=== PATIENT | male | born 1995 | race Caucasian/White ===

== ENCOUNTER 2017-02-06 14:41 | Inpatient (IN) | payer OTHER ==
[2017-02-06] MEDS ORDERED: Sodium Chloride 0.9% 1,000 ML IV SCH (15:45)
[2017-02-06] MEDS ORDERED: CCU Electrolyte Replacement 1 EACH IVPB ONE (15:57)
[2017-02-06] MEDS ORDERED: hydrALAZINE 20 MG/ML VIAL SLOW IVP PRN ×2 (15:57→20:09)
[2017-02-06] MEDS ORDERED: Ondansetron HCl/PF 4 MG/2 ML Vial IVP PRN ×2 (15:57→22:45)
[2017-02-06] MEDS ORDERED: Bisacodyl 10 MG SUPP PR PRN (15:57)
[2017-02-06] MEDS ORDERED: Labetalol HCl 100 MG/20 ML VIAL SLOW IVP PRN ×2 (15:57→20:09)
[2017-02-06] MEDS ORDERED: Ondansetron HCl/PF 4 MG/2 ML Vial ONE (15:59)
[2017-02-06] MEDS ORDERED: Potassium Phosphate 9 MMOL in Sodium Chloride 0.9% 100 ML IVPB PRN (16:20)
[2017-02-06] MEDS ORDERED: Potassium Chloride 20 MEQ TAB PO PRN (16:20)
[2017-02-06] MEDS ORDERED: Magnesium 2 GM/NS 0.9% 100 ML 2 GM in Premix Bag 1 BAG IVPB PRN (16:20)
[2017-02-06] MEDS ORDERED: Potassium Phosphate 12 MMOL in Sodium Chloride 0.9% 250 ML 250 ML IV PRN (16:20)
[2017-02-06] MEDS ORDERED: CCU ELECTROLYTE REPLACEMENT PROTOCOL FS PRN (16:20)
[2017-02-06] MEDS ORDERED: Magnesium Oxide 400 MG TAB PO PRN ×2 (16:20)
[2017-02-06] MEDS ORDERED: Potassium Chloride 40 MEQ in Sodium Chloride 0.9% 250 ML 250 ML IVPB PRN (16:20)
[2017-02-06] MEDS ORDERED: Potassium Phosphate 15 MMOL in Sodium Chloride 0.9% 250 ML 250 ML IV PRN (16:20)
[2017-02-06] MEDS ORDERED: Potassium Chloride 40 MEQ in Premix Bag 1 BAG IVPB PRN (16:20)
[2017-02-06] MEDS ORDERED: ISOVUE-370 76%-LOCM 1 ML ONE (17:04)
[2017-02-06] MEDS ORDERED: Gadobenate Dimeglumine 529 MG/1 ML (20ML VIAL) ONE (17:06)
[2017-02-06 17:07] VITALS: BMI 23.1
--- NOTE | 2017-02-06 17:28 | CT ---
CTA HEAD WITHOUT CONTRAST CTA HEAD WITH IV CONTRAST AND 3D POST PROCESSING: FINDINGS: There is acute intraventricular hemorrhage, predominantly in the fourth ventricle and maybe a small a mount in the third ventricle. No infarct or midline shift is seen. No hydrocephalus is identified. The bony calvarium is intact. There is mucosal disease in the paranasal sinuses. The CTA demonstrates no evidence of major vessel occlusion, high-grade stenosis, or aneurysm formatio n. There are multiple prominent vessels posterior to the intraventricular bleed in the fourth ventri aga, predominantly on the right, suspicious for an AVM. 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 Discussed over the telephone with Dr. Warren Cardoso at 4 p.m. CODE CR POS: ANGELINE
[2017-02-06 17:51] LABS: #Monocytes 0.4 thou/uL (0.11-0.59); #Neutrophils 16.1 thou/uL (1.40-6.50); %Eosinophils 0.1 % (0.0-10.0); %Lymphocytes 5.5 % (21.0-51.0); %Monocytes 2.4 % (0.0-10.0); %Neutrophils 91.9 % (42.0-75.0); Hemoglobin 17.2 g/dL (14.0-18.0); Mean Corpuscular HGB CONC 33.5 g/dL (32.0-36.0); Mean Corpuscular Hemoglobin 30.3 pg (27.0-31.0); Mean Corpuscular Volume 90.5 fl (80.0-94.0); Mean Platelet Volume 6.9 fL (7.4-10.4); Platelet Count 275 thou/uL (130-400); RBC Distribution Width 11.3 % (11.5-14.5); Red Blood Cell (RBC) Count 5.67 mill/uL (4.70-6.10); White Blood Cell (WBC) Count 17.5 thou/uL (4.8-10.8)
[2017-02-06] MEDS ORDERED: Dextrose 50% Abboject 50 ML SYRINGE SLOW IVP PRN (17:53)
[2017-02-06] MEDS ORDERED: HumaLOG 300 UNITS/3 ML VIAL SC PRN (17:53)
[2017-02-06] MEDS ORDERED: Dextrose 5% in Water 1,000 ML IV PRN (17:53)
--- NOTE | 2017-02-06 17:56 | PDOC.PN ---
- Subjective Encounter Start Date: 02/06/17 Encounter Start Time: 17:55 Pt seen for management of medical comorbidities, including diabetes mellitus. Pt denies chest pain, shortness of breath. Headache is better now, 02/16. - Objective MAR Reviewed: Yes Vital Signs & Weight: Vital Signs (12 hours) Temp Pulse Resp Pulse Ox 02/06/17 17:37 98.7 F 98 17 99 Result Diagrams: 02/06/17 17:46 EKG Reviewed by me: Yes (Tele: NSR) Phys Exam - Physical Examination Constitutional: NAD HEENT: moist MMs Neck: supple Respiratory: clear to auscultation bilateral Cardiovascular: RRR Gastrointestinal: soft Neurological: non-focal, moves all 4 limbs Psychiatric: normal affect Skin: no rash Dx/Plan (1) Diabetes mellitus type 1 Status: Chronic - Plan * . Pt admitted for intracranial bleed. needs to go for MRI and is NPO for possible surgical procedures as well. Start accuchecks, insulin sliding scale for now. Stop insuilin pump. Review of Systems - Review of Systems Cardiovascular: negative: chest pain, palpitations, orthopnea, paroxysmal nocturnal dyspnea, edema, light headedness Neurological: Other (Headache) - Medications/Allergies Allergies/Adverse Reactions: Allergies Allergy/AdvReac Type Severity Reaction Status Date / Time No Known Allergies Allergy Unverified 02/06/17 15:35 Medications: Current Medications Bisacodyl (Dulcolax) 10 mg AK DAILYPRN PRN PRN Reason: Constipation Dextrose/Water (Dextrose 50%) 25 gm SLOW IVP PRN PRN PRN Reason: Hypoglycemia Glucagon (Glucagon) 1 mg IM PRN PRN PRN Reason: Hypoglycemia Hydralazine HCl (Apresoline) 5 mg SLOW IVP Q15MIN PRN PRN Reason: SBP > 160, HR < 70 Acetaminophen 1,000 mg/ Device 100 mls @ 400 mls/hr IVPB Q6H PRN PRN Reason: Fever/Mild Pain/Headache Stop: 02/07/17 15:58 Sodium Chloride (Normal Saline 0.9%) 1,000 mls @ 80 mls/hr IV .[id number] ADRIEN Potassium Chloride 40 meq/ (Sodium Chloride) 270 mls @ 135 mls/hr IVPB ASDIR PRN PRN Reason: FOR SERUM K+ 2.5 - 3.5 Potassium Chloride 40 meq/ (Device) 100 mls @ 50 mls/hr IVPB ASDIR PRN PRN Reason: FOR SERUM K+ 2.5 - 3.5 Magnesium Sulfate 1 gm/ Sodium (Chloride) 102 mls @ 102 mls/hr IV PRN PRN PRN Reason: MAG LEVEL 1.4 - 2.0 Magnesium Sulfate 2 gm/ Device 100 mls @ 100 mls/hr IVPB ASDIR PRN PRN Reason: MAGNESIUM < 1.4 Potassium Phosphate 9 mmol/ (Sodium Chloride) 103 mls @ 25.75 mls/hr IVPB ASDIR PRN PRN Reason: Phosphate 1.0-1.8 Potassium Phosphate 12 mmol/ (Sodium Chloride) 254 mls @ 63.5 mls/hr IV ASDIR PRN PRN Reason: Serum phosphate 0.5-0.9 Potassium Phosphate 15 mmol/ (Sodium Chloride) 255 mls @ 63.75 mls/hr IV ASDIR PRN PRN Reason: Serum Phos < 0.5 Dextrose/Water (D5w) 1,000 mls @ 0 mls/hr IV .Q0M PRN; As Directed PRN Reason: Hypoglycemia Insulin Human Lispro (Humalog) 0 units SC .MILD SLIDING SCALE PRN PRN Reason: Mild Correctional Scale Labetalol HCl (Normodyne) 10 mg SLOW IVP Q2H PRN PRN Reason: SBP GREATER THAN 160 Magnesium Oxide (Magnesium Oxide) 400 mg PO BIDPRN PRN PRN Reason: FOR SERUM MAG 1.4 - 2.0 Magnesium Oxide (Magnesium Oxide) 800 mg PO PRN PRN PRN Reason: FOR SERUM MAG < 1.4 Miscellaneous Medication (Phos-Nak) 1 pkt PO TIDPRN PRN PRN Reason: FOR PHOS LEVEL 1.0 - 1.8 Miscellaneous Medication (Phos-Nak) 2 pkt PO TIDPRN PRN PRN Reason: FOR PHOS LEVEL 0.5 - 1.0 Morphine Sulfate (Morphine) 2 mg SLOW IVP Q2HR PRN PRN Reason: Breakthrough Pain [facility] Electrolyte (Replacement Protocol) 0 each FS PRN PRN PRN Reason: FOR ELECTROLYTE REPLACEMENT Ondansetron HCl (Zofran) 4 mg IVP BIDPRN PRN PRN Reason: Nausea/Vomiting Potassium Chloride (K-Dur) 40 meq PO ASDIR PRN PRN Reason: FOR SERUM K+ 2.5 - 3.5 Potassium Chloride (Klor-Con) 40 meq PER TUBE ASDIR PRN PRN Reason: FOR SERUM K+ 2.5-3.5 Sodium Chloride (Flush - Normal Saline) 10 ml IVF PRN PRN PRN Reason: Saline Flush
[2017-02-06 18:13] LABS: Anion Gap 19 mmol/L (10-20); BUN (Urea Nitrogen) 14 mg/dL (8.9-20.6); Calc. Creatinine Clearance 154 mL/min (70-130); Calcium 9.7 mg/dL (7.8-10.44); Carbon Dioxide 19 mmol/L (22-29); Chloride 105 mmol/L (98-107); Estimated GFR-MDRD Greater than 90; Glucose 243 mg/dL (70-105); Potassium 3.9 mmol/L (3.5-5.1); Sodium 139 mmol/L (136-145)
--- NOTE | 2017-02-06 18:40 | HP ---
HISTORY OF PRESENT ILLNESS: Mr. Zafar is a 21-year-old man who was brought to [facility] by EMS transfer from [facility] in [place] after he reported there complaining of severe worst headache of his life since 1100 hours this morning. He has a history of migraines and stated that it started out feel like one of those. Then, from there, started to progr ess in severity. He then began to vomit uncontrollably and at that point called EMS, which took him to the [facility]. A CT scan was performed at that emergency department revealed intraventricular hemor rhage that encompasses the entire fourth ventricle with extension into the surrounding cisterns. The re also looks to be some cerebellar hemorrhage, particularly bilateral cerebellar subarachnoid hemorr aaron. He does not have any meningismus or sensitivity to light. He states that immediately upon ons et of his headache symptoms, he did have some left-sided hand and foot numbness as well as loss of th e majority of his hearing function in the left ear. The numbness has since resolved. The hearing he reports to me is still a persistent problem. His systolic pressures at the highest were in the 150s and at present are harboring in the 130s and low 140s, which I think is reasonable. His vomiting is much better controlled. He was given a large dose of Dilaudid. He immediately preceding transfer t o [facility] since so he is a little bit sleepy during our discussion, but he does arouse completely to full alertness when spoken to. On examination, he is again drowsy, but oriented x4. He understands the date, year, current situatio n, his name, his date of and can describe to me the entire events that preceded our discussion here today. His motor exam, he has full motor function, 5/5 strength in all muscle movements of the upper and lower extremities. He has no sensory disturbance to any trunk, chest, face or extremity lo cation that I can discern on examination. Cerebellar function is maintained and assessed with finger -nose-finger in bilateral upper extremities and in the heel-abreu slides bilaterally as well. His pup ils are equally round and reactive to light. Extraocular movements are intact. He does have diminis hed hearing which is notable with finger rub test to bilateral ears. He has intact hearing grossly o n the right and he states either extraordinarily diminished or fully absent in the left ear. PAST MEDICAL HISTORY: Only significant for type 1 diabetes. CURRENT MEDICATIONS: Humalog. ALLERGIES: No known drug allergies. ASSESSMENT: Acute intracerebral hemorrhage. PLAN: We have received now a CTA at this time in the emergency department. It does not show any obv ious aneurysm of AVM that I can note on the scan. This was discussed with Dr. Cardoso who agrees and t he radiologist's also agrees. Again ventricles are also normal in size with only mild enlargement of the occipital horns bilaterally. What we will obtain is an MRI as well with and without contrast of the brain to further assess any abnormal vasculature or tissue that may be responsible for this hemo rrhage. At some point, he will need a conventional angiogram performed as well to rule this out. Fo r now, we will admit him to the ICU with q.1 hour neuro checks. We will start normal saline to b.i.d . and make him n.p.o. for the time being. I discussed with the patient and family that the first 24- 48 hours will be the most critical, has our biggest fear would be obstructive hydrocephalus at which point I discussed the possibility of needing an external ventricular drain placed. The family and zehra jung understand of this and are accepting of that going forward. If that presents, I will discuss t his with the ICU nurse and have a ventriculostomy kit and tools in the room, but not open, so that if this does come to past, we can do it emergently. Hopefully, this does not occur. I will order a co nsultation to the Hospitalist for the purpose of medical management given that he is a type 1 diabeti c. Head of bed will be elevated 30 degrees. We will plan a repeat CT scan from late this evening ar ound midnight to reassess the hemorrhage size in ventricular size. Otherwise, we will continue q.1 h our neuro checks at least another 24-48 hours. Pieter Joseph PA-C dictating for Dr. Cardoso.
--- NOTE | 2017-02-06 18:53 | MRI ---
MRI BRAIN WITH AND WITHOUT CONTRAST: INDICATIONS: History of intracranial hematoma with sudden onset of headache, nausea, vomiting, and unsteady gait. FINDINGS: 16 mL of Multihance utilized for this exam. There is a tangle of vessels seen adjacent to the right posterolateral aspect of the mid brain. Ther e is a prominent collection of hemorrhage seen within the posterior central and right posterolateral aspect of the mid brain, measuring 1.5 cm. There is hemorrhage in the fourth ventricle and third rogerio tricle, as well as within the left foramen of Monro of the left lateral ventricle. Appropriate flow voids are seen within the major intracranial vessels. There is no restricted diffusion to suggest an acute infarction. The septum pellucidum and third ventricle are midline. No definite acute area of abnormal enhancement is seen, other than involving the adjacent tangle of vessels near the posterior aspect of the mid brain. There is mucus retention cyst within the right maxillary sinus. There is scattered mucosal thickening within the ethmoid air cells. There is an air-fluid level within the le ft maxillary sinus. IMPRESSION: 1. Tangle of vessels seen adjacent to the posterior aspect of the mid brain is suspicious for an art eriovenous malformation that bled. There is some intraparenchymal hematoma within the posterior aspe ct of the mid brain, as well as some intraventricular hemorrhage within the fourth ventricle, the thi rd ventricle, and the foramen of Monro of the left lateral ventricle. Follow-up examination may be p erformed with a conventional angiogram for a more definitive diagnosis, as hemorrhage does obscure de tail. A follow-up MR examination in four to six weeks may also be helpful. 2. Air-fluid level within the left maxillary sinus. Recommend correlation with frontal sinusitis. 3. Partial mastoid effusion on the right. POS: [facility]
[2017-02-06] MEDS: Sodium Chloride 0.9% 1,000 ML IV SCH (19:58)
[2017-02-06] MEDS ORDERED: Promethazine HCl 25 MG/ML VIAL SLOW IVP PRN ×2 (22:33→22:35)
[2017-02-06] MEDS: Acetaminophen 1,000 MG in Premix Bag 1 BAG IVPB PRN (22:54)
[2017-02-06] MEDS: HumaLOG 300 UNITS/3 ML VIAL SC PRN (23:48)
--- NOTE | 2017-02-07 02:39 | PRG ---
DATE OF SERVICE: 02/06/2017 Mr. Zafar is a 21-year-old male who presented today with severe headache as well as nausea and ana maría e emesis. He had a CT scan performed at an outside ER, which revealed the presence of hemorrhage wit hin the fourth ventricle. He was subsequently transferred to [facility] where he underwent a CT angiography, which did not reveal a source for aneurysm. He was admitted to the ICU where he garibay s been neurologically and hemodynamically stable. He has had an MRI scan performed on the brain, whi ch does not reveal an obvious source of underlying lesion, although the hemorrhage is such that it co uld very well obscure an underlying lesion. There is some suggestion of possible vascular tortuosity , which may represent AVM. It is also conceivable that this represents a cavernoma. The plan from a neurosurgical perspective will be ongoing ICU management with observation. I have be en discussed in detail the findings, diagnosis, and plan with his family. I discussed the need withi n the near future for angiography as well. I also alerted them to the potential for development of s ymptomatic hydrocephalus. Currently, Mr. Zafar is resting comfortably in bed. He is oriented x3, and follows commands well. He does report some nausea and has been struggling with emesis. We will continue to treat that med cooper.
[2017-02-07] MEDS: Morphine 4 MG/ML VIAL SLOW IVP PRN (03:04)
[2017-02-07] MEDS: Sodium Chloride 0.9% 1,000 ML IV SCH ×2 (04:20→17:59)
[2017-02-07 04:30] LABS: #Lymphocytes 1.1 thou/uL (1.20-3.40); #Monocytes 0.7 thou/uL (0.11-0.59); #Neutrophils 10.3 thou/uL (1.40-6.50); %Eosinophils 0.2 % (0.0-10.0); %Lymphocytes 9.2 % (21.0-51.0); %Monocytes 5.6 % (0.0-10.0); Hemoglobin 14.7 g/dL (14.0-18.0); Mean Corpuscular HGB CONC 33.1 g/dL (32.0-36.0); Mean Corpuscular Hemoglobin 30.2 pg (27.0-31.0); Mean Corpuscular Volume 91.3 fl (80.0-94.0); Platelet Count 331 thou/uL (130-400); RBC Distribution Width 11.5 % (11.5-14.5); Red Blood Cell (RBC) Count 4.88 mill/uL (4.70-6.10); White Blood Cell (WBC) Count 12.1 thou/uL (4.8-10.8)
[2017-02-07 04:42] LABS: Anion Gap 19 mmol/L (10-20); BUN (Urea Nitrogen) 19 mg/dL (8.9-20.6); Calc. Creatinine Clearance 131 mL/min (70-130); Calcium 9.2 mg/dL (7.8-10.44); Carbon Dioxide 19 mmol/L (22-29); Chloride 106 mmol/L (98-107); Estimated GFR-MDRD Greater than 90; Glucose 320 mg/dL (70-105); Sodium 140 mmol/L (136-145)
[2017-02-07] MEDS: HumaLOG 300 UNITS/3 ML VIAL SC PRN (06:21)
--- NOTE | 2017-02-07 08:08 | HP ---
DATE OF SERVICE: 02/07/2017 Mr. Zafar this morning he is stable from yesterday's exam. He is sleepy, but awakens rather quick ly and overall looks to be doing pretty well. His CT scan performed at 0500 this morning looks stabl e to yesterday's exam. Ventricles remain the same size. There is no obvious sign of increased ventr icular volume so at least for the time being we can hold off on the EVD placement. Again, he is orie nted to time, place, person and situation. He has no motor deficits, no sensory deficits. He does c ontinue to have persistent left ear reduced hearing. Of note, his blood sugars have continued to ris e steadily, now up in the low 300s. He does have sliding scale insulin ordered by [facility]; however, he may need more of treatment given his use of an insulin pump for type 1 diabetes. Critical Care to s ee the patient today and will likely adjust his insulin going forward. He also has heart rate that i s persistently in the 110s to 125 range, which is not normal for him. I am not sure if this is pain related or some secondary cardiac episode. We will continue to monitor this as well, but again overa ll given the location and size of his hemorrhage, he is doing very well. He is still in the window, though that he get up rapidly degrade neurologically at which point, again I discussed with him and h is father he may need an EVD placement. They are understanding of this and receptive to the idea, bu t hopefully we did not have to cross that bridge.
--- NOTE | 2017-02-07 08:52 | CT ---
PRELIMINARY REPORT/[facility]/EMERGENCY AFTER HOURS PROCEDURE: EXAM: CT Head Without Intravenous Contrast EXAM DATE/TIME: Exam ordered 02/07/2017 3:29 AM CLINICAL HISTORY: 21 years old, male; Condition or disease; Other: Intracerebral hemorrhagic stroke; Patient HX: F/u in tracerebral hemorrhagic stroke TECHNIQUE: Axial computed tomography images of the head/brain without intravenous contrast. COMPARISON: CTA Angio Head W LORENZA Con 2017-02-06 15:38 FINDINGS: Brain: Redemonstrated is a RIGHT mid brain hemorrhage/vascular malformation measuring approximately 1 5 mm which is unchanged from prior CT. Intraventricular hemorrhage is again noted within the fourth v entricle. No significant white matter disease. Ventricles: Mild ventricular prominence of the bilateral temporal horns is stable from prior. Bones/joints: Normal. No acute fracture. Soft tissues: Normal. Sinuses: Unremarkable as visualized. No acute sinusitis. Mastoid air cells: Unremarkable as visualized. No mastoid effusion. IMPRESSION: 1. Redemonstrated is a RIGHT mid brain hemorrhage/vascular malformation measuring approximately 15 mm which is unchanged from prior CT. Intraventricular hemorrhage is again noted within the adjacent fou rth ventricle. 2. Mild ventricular prominence of the bilateral temporal horns is stable from prior. Thank you for allowing us to participate in the care of your patient. Dictated and Authenticated by: Brock Ojeda MD 02/07/2017 3:51 AM Central Time ([place] & [place]) FINAL REPORT EMERGENT AFTER HOURS STUDY CT BRAIN NONCONTRAST: DATE: 02/07/17. TIME: 3:30 a.m. HISTORY: A 21-year-old male followup spontaneous, nontraumatic intracranial hemorrhage. COMPARISON: CT angiogram of the head of 02/06/17 at 3:42 p.m. FINDINGS: There is an approximately 1 x 1.5 cm acute intraaxial hematoma at the right posterior aspect of the m id brain. The hemorrhage has spilled into the adjacent fourth ventricle, which is mildly expanded, a nd into the bilateral foramina of Luschka and the foramen of Magendie. There is a tiny hematoma in t he third ventricle. The temporal horns of the lateral ventricles are mildly dilated. No mass effect or midline shift. No new hemorrhage. No interval change overall. No subdural or epidural hematoma . This report agrees with preliminary report by [facility]. IMPRESSION: 1. Intraaxial acute hemorrhage at the right posterior aspect of the midbrain, suspicious for a vascu lar malformation such as cavernous malformation. 2. That blood has spilled into intraventricular hematomas, mostly in the fourth ventricle, causing v vincent mild obstructive hydrocephalus. 3. No interval change overall since 02/06/17 at 3:42 p.m. BATSHEVA Tinajero POS: AN[facility]
[2017-02-07] MEDS ORDERED: Insulin Regular 300 UNITS/3 ML VIAL SC PRN (09:49)
[2017-02-07] MEDS ORDERED: Dextrose 50% Abboject 50 ML SYRINGE IVP PRN (09:49)
[2017-02-07] MEDS ORDERED: Dextrose 5% in Water 1,000 ML IV PRN ×2 (09:49→12:54)
[2017-02-07] MEDS ORDERED: HumaLOG 300 UNITS/3 ML VIAL SC PRN (12:54)
[2017-02-07] MEDS ORDERED: HumaLOG 300 UNITS/3 ML VIAL SC SCH (13:00)
--- NOTE | 2017-02-07 13:03 | CON ---
DATE OF CONSULTATION: 02/07/2017 SERVICE: Pulmonary Medicine. REASON FOR CONSULTATION: ICU patient. HISTORY OF PRESENT ILLNESS: The patient is a 21-year-old white male with past medical history significant for type 2 diabetes mellitus. He was in his usual state of health when he had a sudden onset of headache and altered mentation. He was brought to the emergency department. He was discovered to have intracranial hemorrhage. AV malformation is suggested based on imaging studies. As such, he is going down for an angiogram with possible procedure at some point in the very near future. He currently has headache, but this is improved. His mentation has improved dramatically since he has been in the ICU. He currently denies any fevers, chills, nausea, vomiting, or chest discomfort. He has an excellent appetite and is requesting food at this time. There have been no significant changes to his bowel habits. He is on an insulin pump at home and he manages his insulin based on some carb ratios. He has very good control with this modality at home and is requesting to restart this. I suggested that it is reasonable for us to restart his basal rate of insulin, but I would not like for him to bolus his premeal insulin and will take care of that at this point. This is the solution that we arrived primarily because the patient's mom is very concerned about transition off of the insulin pump and then back on. PAST MEDICAL HISTORY: Type 1 diabetes mellitus. PAST SURGICAL HISTORY: None. SOCIAL HISTORY: Negative for tobacco. He drinks alcohol occasionally. He notes using marijuana, but outside of that, he has no other illicit drug use. He has no exposure to chemicals, dust, asbestos or tuberculosis. FAMILY HISTORY: Noncontributory. ALLERGIES: No known drug allergies. MEDICATIONS: List of his inpatient medications was reviewed. A couple of small updates were made. REVIEW OF SYSTEMS: General, head, ears, eyes, nose, throat, cardiovascular, respiratory, GI, , musculoskeletal, neurologic and skin is negative except as mentioned in the HPI. PHYSICAL EXAMINATION: VITAL SIGNS: Currently afebrile with T-max of 99.3. Pulse 114, blood pressure 108/61, respirations 17, and saturation 97% on room air. GENERAL: Patient is awake, alert, in no apparent distress. LUNGS: Decent air entry. There is no prolonged expiratory phase, wheezing, rhonchi or crackles. HEART: Heart is tachycardic. Regular. ABDOMEN: Soft, nontender, nondistended, bowel sounds positive. MUSCULOSKELETAL: No cyanosis or clubbing. No pitting in the bilateral lower extremities. NEUROLOGIC: Grossly nonfocal. He is a little somnolent, but outside of that, he converses comfortably, and moves all four extremities. He demonstrates excellent strength and good sensation throughout. LABORATORY DATA: WBC 12.1 and improving, hemoglobin 14.7, platelets 331,000. Neutrophil count 85%. This is down trending. Basic metabolic profile is unremarkable. Blood sugars ranged from 235-373. IMAGING: CT of the brain demonstrates right midbrain hemorrhage and vascular malformation measuring 15 mm. This is unchanged. Hemorrhage is adjacent to the fourth ventricle. No evidence of hydrocephalus is evolving. Mild ventricular prominence of the bilateral temporal horns is noted. ASSESSMENT: 1. Intraparenchymal hemorrhage. 2. 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 3. Type 1 diabetes mellitus. PLAN: The patient is going to be going down for an interventional evaluation and possible procedure. He will remain in the ICU we have further understanding of what needs to be done here. If this is going to be delayed by 1-2 days, I think it would be reasonable to feed the patient. As previously noted, we are going to allow for him to continue using his basal rate off of his insulin pump. In addition to that, we will provide him with sliding scale insulin as well as premeal boluses once he is allowed to eat. Pulmonary or Critical Care will continue to follow while the patient remains in this location. 70 minutes have been devoted to this patient in various activities. For at least half of this time, I was at the bedside in direct patient interaction or coordinating care with the care team. For the remainder of the time I was immediately available to the patient in the hospital unit. REID
[2017-02-07] MEDS: Acetaminophen 1,000 MG in Premix Bag 1 BAG IVPB PRN (13:49)
[2017-02-07] MEDS ORDERED: INSULIN PUMP FS SCH (14:15)
--- NOTE | 2017-02-07 15:28 | PDOC.PN ---
- Subjective Encounter Start Date: 02/07/17 Encounter Start Time: 10:20 Pt seen for followup re; diabetes mellitus. Sleepy but arousable. - Objective Vital Signs & Weight: Vital Signs (12 hours) Temp Pulse Resp Pulse Ox 02/07/17 11:00 99 F 02/07/17 08:00 99.3 F 121 H 16 100 02/07/17 07:00 99.3 F Weight Weight 177 lb 4.026 oz Most Recent Monitor Data Heart Rate from ECG 99 NIBP 110/62 NIBP BP-Mean 77 Respiration from ECG 15 SpO2 100 I&O: 02/06/17 02/07/17 02/08/17 06:59 06:59 06:59 Intake Total 1095 500 Output Total 2050 1200 Balance -955 -700 Result Diagrams: 02/07/17 03:53 02/07/17 03:53 Additional Labs: Accuchecks 02/07/17 02/07/17 02/07/17 13:53 11:12 06:21 POC Glucose 237 H 235 H 373 H 02/06/17 02/06/17 23:18 20:40 POC Glucose 275 H 314 H Phys Exam - Physical Examination Constitutional: NAD HEENT: moist MMs Neck: supple Respiratory: clear to auscultation bilateral Cardiovascular: RRR Gastrointestinal: soft Neurological: moves all 4 limbs Skin: no rash Dx/Plan (1) Diabetes mellitus type 1 Status: Chronic - Plan * . Pt still NPO. Blood sugars elevated, switch to insulin aggressive sliding scale. Review of Systems - Review of Systems Constitutional: negative: fever, chills, sweats, weakness, malaise Cardiovascular: negative: chest pain, palpitations, orthopnea, paroxysmal nocturnal dyspnea, edema, light headedness - Medications/Allergies Allergies/Adverse Reactions: Allergies Allergy/AdvReac Type Severity Reaction Status Date / Time No Known Allergies Allergy Unverified 02/06/17 15:35 Medications: Current Medications Amoxicillin/Clavulanate Potassium (Augmentin) 500 mg PO Q12HR ADRIEN Stop: 02/17/17 21:01 Bisacodyl (Dulcolax) 10 mg NC DAILYPRN PRN PRN Reason: Constipation Dextrose/Water (Dextrose 50%) 25 gm IVP PRN PRN PRN Reason: HYPOGLYCEMIA PROTOCOL Glucagon (Glucagon) 1 mg IM PRN PRN PRN Reason: HYPOGLYCEMIA PROTOCOL Hydralazine HCl (Apresoline) 5 mg SLOW IVP Q15MIN PRN PRN Reason: SBP > 140, HR < 70 Last Admin: 02/06/17 20:41 Dose: 5 mg Acetaminophen 1,000 mg/ Device 100 mls @ 400 mls/hr IVPB Q6H PRN PRN Reason: Fever/Mild Pain/Headache Stop: 02/07/17 15:58 Last Admin: 02/07/17 13:49 Dose: 100 mls Sodium Chloride (Normal Saline 0.9%) 1,000 mls @ 80 mls/hr IV .[id number] ADRIEN Last Admin: 02/07/17 04:20 Dose: 1,000 mls Potassium Chloride 40 meq/ (Sodium Chloride) 270 mls @ 135 mls/hr IVPB ASDIR PRN PRN Reason: FOR SERUM K+ 2.5 - 3.5 Potassium Chloride 40 meq/ (Device) 100 mls @ 50 mls/hr IVPB ASDIR PRN PRN Reason: FOR SERUM K+ 2.5 - 3.5 Magnesium Sulfate 1 gm/ Sodium (Chloride) 102 mls @ 102 mls/hr IV PRN PRN PRN Reason: MAG LEVEL 1.4 - 2.0 Magnesium Sulfate 2 gm/ Device 100 mls @ 100 mls/hr IVPB ASDIR PRN PRN Reason: MAGNESIUM < 1.4 Potassium Phosphate 9 mmol/ (Sodium Chloride) 103 mls @ 25.75 mls/hr IVPB ASDIR PRN PRN Reason: Phosphate 1.0-1.8 Potassium Phosphate 12 mmol/ (Sodium Chloride) 254 mls @ 63.5 mls/hr IV ASDIR PRN PRN Reason: Serum phosphate 0.5-0.9 Potassium Phosphate 15 mmol/ (Sodium Chloride) 255 mls @ 63.75 mls/hr IV ASDIR PRN PRN Reason: Serum Phos < 0.5 Dextrose/Water (D5w) 1,000 mls @ 0 mls/hr IV .Q0M PRN; As Directed PRN Reason: Hypoglycemia Insulin Human Lispro (Humalog) 3 units SC AC ADRIEN Insulin Human Lispro (Humalog) 0 units SC ACHS PRN PRN Reason: Correctional Scale Labetalol HCl (Normodyne) 10 mg SLOW IVP Q2H PRN PRN Reason: Sbp Greater Than 140 Last Admin: 02/06/17 22:19 Dose: 2 ml Magnesium Oxide (Magnesium Oxide) 400 mg PO BIDPRN PRN PRN Reason: FOR SERUM MAG 1.4 - 2.0 Magnesium Oxide (Magnesium Oxide) 800 mg PO PRN PRN PRN Reason: FOR SERUM MAG < 1.4 Miscellaneous Medication (Phos-Nak) 1 pkt PO TIDPRN PRN PRN Reason: FOR PHOS LEVEL 1.0 - 1.8 Miscellaneous Medication (Phos-Nak) 2 pkt PO TIDPRN PRN PRN Reason: FOR PHOS LEVEL 0.5 - 1.0 Morphine Sulfate (Morphine) 2 mg SLOW IVP Q2HR PRN PRN Reason: Breakthrough Pain Last Admin: 02/07/17 03:04 Dose: 2 mg Ccu Electrolyte (Replacement Protocol) 0 each FS PRN PRN PRN Reason: FOR ELECTROLYTE REPLACEMENT Ondansetron HCl (Zofran) 8 mg IVP Q6H PRN PRN Reason: Nausea/Vomiting Insulin Pump 0 each FS ASDIR ADRIEN Potassium Chloride (K-Dur) 40 meq PO ASDIR PRN PRN Reason: FOR SERUM K+ 2.5 - 3.5 Potassium Chloride (Klor-Con) 40 meq PER TUBE ASDIR PRN PRN Reason: FOR SERUM K+ 2.5-3.5 Promethazine HCl (Phenergan) 12.5 mg SLOW IVP Q6H PRN PRN Reason: Nausea Last Admin: 02/06/17 22:51 Dose: 12.5 mg Promethazine HCl (Phenergan) 25 mg SLOW IVP Q6H PRN PRN Reason: Nausea Last Admin: 02/07/17 07:11 Dose: 25 mg Sodium Chloride (Flush - Normal Saline) 10 ml IVF PRN PRN PRN Reason: Saline Flush
[2017-02-07] MEDS: HumaLOG 300 UNITS/3 ML VIAL SC SCH (17:59)
[2017-02-07] MEDS: Amoxicillin/Potassium Clav 500 MG TAB PO SCH (20:14)
[2017-02-08] MEDS: Sodium Chloride 0.9% 1,000 ML IV SCH ×2 (04:26→18:59)
[2017-02-08] MEDS: HumaLOG 300 UNITS/3 ML VIAL SC SCH ×3 (08:43→17:49)
[2017-02-08] MEDS: Amoxicillin/Potassium Clav 500 MG TAB PO SCH ×2 (09:38→21:18)
[2017-02-08] MEDS ORDERED: HumaLOG 300 UNITS/3 ML VIAL SC PRN (09:54)
--- NOTE | 2017-02-08 10:25 | PRG ---
DATE OF SERVICE: 02/08/2017 SERVICE: Pulmonary Medicine. INTERVAL HISTORY: The patient is doing outstanding from respiratory standpoint. Mentation-taylor, he is moving all 4 extremities and less somnolent today. He says he feels tired, but he is awake and al ert with no stimulation. He denies any current fevers or chills. There are no overnight events. Hi s headache has improved a little bit. He wants real food, but does have a little bit of nausea. He had a low blood sugar last night, but otherwise there were no significant events. PHYSICAL EXAMINATION: VITAL SIGNS: Afebrile with T-max of 99.2, pulse 81, blood pressure 130/76, respirations 13, saturati on 100% on room air. GENERAL: Patient is alert, in no apparent distress. LUNGS: Excellent air entry with no prolonged expiratory phase, wheezing, rhonchi or crackles. HEART: Normal rate, regular. ABDOMEN: Soft, nontender, nondistended. Bowel sounds are positive. MUSCULOSKELETAL: No cyanosis or clubbing. No pitting in the bilateral lower extremities. NEUROLOGIC: Grossly nonfocal. LABORATORY DATA: Blood sugar ranges from 61-203 over the last 24 hours. ASSESSMENT: 1. Intraparenchymal hemorrhage. 2. 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 3. Type 1 diabetes mellitus. PLAN: The patient is going to continue his basal rate off his pump. I have asked him to reduce the rate by 20%-30%. I would like him running between 120 and 180 during this ICU admission. I will hol d his premeal insulin for breakfast, but we will get back on track with that at lunch. At this point , he has no requirements for. I will discontinue his correction dose in the evening time. We will c ontinue to observe him in the ICU until we can further understand what needs to occur with this possi ble AVM.
--- NOTE | 2017-02-08 11:41 | PRG ---
DATE OF SERVICE: 02/07/2017 Mr. Zafar continues to recover from a posterior fossa hemorrhage where imaging suggests what may b e an AVM as the source. Neurologically he has been stable. His nausea has improved and his appetite is slightly improved as well. He continues to be somewhat somnolent. Repeat imaging shows mildly di lated temporal horns with what may be early obstructive hydrocephalus. Our plan moving forward will be ongoing nonsurgical management. My plan will be to move forward with a cerebral angiography this week to confirm the presence of arteriovenous malformation.
--- NOTE | 2017-02-08 13:54 | PRG ---
DATE OF SERVICE: 02/08/2017 Ms. Zafar this morning is doing very well. His pressures have maintained below 120 systolic. His heart rate has now come down into the 90s when it fall, frequently in the 70s. His headache is impr oving. His neurologic exam remains stable. He continues to understand and is oriented to name, plac e, person, situation, and location. I think he has done extraordinarily well. I think later today w e can start to try to mobilize in the hallway and I do advance diet as tolerated. This is Pieter Joseph PA-C, dictating for Dr. Cardoso.
[2017-02-08] MEDS: Acetaminophen 325 MG TAB PO PRN (16:26)
--- NOTE | 2017-02-08 19:06 | PDOC.PN ---
- Subjective Encounter Start Date: 02/08/17 Encounter Start Time: 09:20 Pt seen for followup re: DM1. No complaints. - Objective Vital Signs & Weight: Vital Signs (12 hours) Temp Pulse Resp Pulse Ox 02/08/17 16:00 98.9 F 02/08/17 12:00 98.8 F 02/08/17 08:00 99.2 F 81 13 99 Weight Weight 182 lb 12.211 oz Most Recent Monitor Data Heart Rate from ECG 86 NIBP 130/85 NIBP BP-Mean 109 Respiration from ECG 19 SpO2 96 I&O: 02/07/17 02/08/17 02/09/17 06:59 06:59 06:59 Intake Total 1095 3888 1598 Output Total 2049 1999 2074 Balance -955 1888 -865 Result Diagrams: 02/07/17 03:53 02/07/17 03:53 Additional Labs: Accuchecks 02/08/17 02/08/17 02/08/17 16:34 11:22 07:58 POC Glucose 138 H 104 93 02/08/17 02/08/17 02/08/17 04:26 02:39 02:03 POC Glucose 156 H 83 61 L 02/07/17 20:09 POC Glucose 139 H Phys Exam - Physical Examination Constitutional: NAD HEENT: moist MMs Respiratory: clear to auscultation bilateral Cardiovascular: RRR Gastrointestinal: soft Neurological: moves all 4 limbs Psychiatric: normal affect Dx/Plan (1) Diabetes mellitus type 1 Status: Chronic - Plan * . Pt running basal inslin from pump, with premeal coverage. Was hypoglycemic earlier, held premeal insulin before breakfast. Review of Systems - Review of Systems Cardiovascular: negative: chest pain, palpitations, orthopnea, paroxysmal nocturnal dyspnea, edema, light headedness - Medications/Allergies Allergies/Adverse Reactions: Allergies Allergy/AdvReac Type Severity Reaction Status Date / Time No Known Allergies Allergy Unverified 02/06/17 15:35 Medications: Current Medications Acetaminophen (Tylenol) 650 mg PO Q6H PRN PRN Reason: Headache/Fever or Pain Last Admin: 02/08/17 16:26 Dose: 650 mg Amoxicillin/Clavulanate Potassium (Augmentin) 500 mg PO Q12HR ADRIEN Stop: 02/17/17 21:01 Last Admin: 02/08/17 09:38 Dose: 500 mg Bisacodyl (Dulcolax) 10 mg IN DAILYPRN PRN PRN Reason: Constipation Dextrose/Water (Dextrose 50%) 25 gm IVP PRN PRN PRN Reason: HYPOGLYCEMIA PROTOCOL Glucagon (Glucagon) 1 mg IM PRN PRN PRN Reason: HYPOGLYCEMIA PROTOCOL Hydralazine HCl (Apresoline) 5 mg SLOW IVP Q15MIN PRN PRN Reason: SBP > 140, HR < 70 Last Admin: 02/06/17 20:41 Dose: 5 mg Sodium Chloride (Normal Saline 0.9%) 1,000 mls @ 80 mls/hr IV .[id number] [facility] Last Admin: 02/08/17 18:59 Dose: 1,000 mls Potassium Chloride 40 meq/ (Sodium Chloride) 270 mls @ 135 mls/hr IVPB ASDIR PRN PRN Reason: FOR SERUM K+ 2.5 - 3.5 Potassium Chloride 40 meq/ (Device) 100 mls @ 50 mls/hr IVPB ASDIR PRN PRN Reason: FOR SERUM K+ 2.5 - 3.5 Magnesium Sulfate 1 gm/ Sodium (Chloride) 102 mls @ 102 mls/hr IV PRN PRN PRN Reason: MAG LEVEL 1.4 - 2.0 Magnesium Sulfate 2 gm/ Device 100 mls @ 100 mls/hr IVPB ASDIR PRN PRN Reason: MAGNESIUM < 1.4 Potassium Phosphate 9 mmol/ (Sodium Chloride) 103 mls @ 25.75 mls/hr IVPB ASDIR PRN PRN Reason: Phosphate 1.0-1.8 Potassium Phosphate 12 mmol/ (Sodium Chloride) 254 mls @ 63.5 mls/hr IV ASDIR PRN PRN Reason: Serum phosphate 0.5-0.9 Potassium Phosphate 15 mmol/ (Sodium Chloride) 255 mls @ 63.75 mls/hr IV ASDIR PRN PRN Reason: Serum Phos < 0.5 Dextrose/Water (D5w) 1,000 mls @ 0 mls/hr IV .Q0M PRN; As Directed PRN Reason: Hypoglycemia Insulin Human Lispro (Humalog) 3 units SC AC [facility] Last Admin: 02/08/17 17:49 Dose: 3 unit Insulin Human Lispro (Humalog) 0 units SC AC PRN PRN Reason: Correctional Scale Labetalol HCl (Normodyne) 10 mg SLOW IVP Q2H PRN PRN Reason: Sbp Greater Than 140 Last Admin: 02/06/17 22:19 Dose: 2 ml Magnesium Oxide (Magnesium Oxide) 400 mg PO BIDPRN PRN PRN Reason: FOR SERUM MAG 1.4 - 2.0 Magnesium Oxide (Magnesium Oxide) 800 mg PO PRN PRN PRN Reason: FOR SERUM MAG < 1.4 Miscellaneous Medication (Phos-Nak) 1 pkt PO TIDPRN PRN PRN Reason: FOR PHOS LEVEL 1.0 - 1.8 Miscellaneous Medication (Phos-Nak) 2 pkt PO TIDPRN PRN PRN Reason: FOR PHOS LEVEL 0.5 - 1.0 Morphine Sulfate (Morphine) 2 mg SLOW IVP Q2HR PRN PRN Reason: Breakthrough Pain Last Admin: 02/07/17 03:04 Dose: 2 mg Ccu Electrolyte (Replacement Protocol) 0 each FS PRN PRN PRN Reason: FOR ELECTROLYTE REPLACEMENT Ondansetron HCl (Zofran) 8 mg IVP Q6H PRN PRN Reason: Nausea/Vomiting Last Admin: 02/08/17 09:38 Dose: 8 mg Insulin Pump 0 each FS ASDIR ADRIEN Potassium Chloride (K-Dur) 40 meq PO ASDIR PRN PRN Reason: FOR SERUM K+ 2.5 - 3.5 Potassium Chloride (Klor-Con) 40 meq PER TUBE ASDIR PRN PRN Reason: FOR SERUM K+ 2.5-3.5 Promethazine HCl (Phenergan) 12.5 mg SLOW IVP Q6H PRN PRN Reason: Nausea Last Admin: 02/06/17 22:51 Dose: 12.5 mg Promethazine HCl (Phenergan) 25 mg SLOW IVP Q6H PRN PRN Reason: Nausea Last Admin: 02/07/17 07:11 Dose: 25 mg Sodium Chloride (Flush - Normal Saline) 10 ml IVF PRN PRN PRN Reason: Saline Flush
[2017-02-09] MEDS ORDERED: Heparin 10,000 UNITS/1 ML VIAL ONE (07:32)
[2017-02-09] MEDS: HumaLOG 300 UNITS/3 ML VIAL SC SCH ×3 (09:40→17:49)
[2017-02-09] MEDS: Amoxicillin/Potassium Clav 500 MG TAB PO SCH ×2 (09:47→20:35)
[2017-02-09] MEDS: Sodium Chloride 0.9% 1,000 ML IV SCH ×2 (09:48→20:37)
[2017-02-09] MEDS ORDERED: Iopamidol 370 76% 50 ML VIAL FS ONE (11:12)
--- NOTE | 2017-02-09 12:57 | PRG ---
DATE OF SERVICE: 02/09/2017 SUBJECTIVE: Mr. Zafar is a 21-year-old gentleman that presented with intraventricular hemorrhage with a small degree of brain stem extension. He clinically has continued to improve rather dramatica lly over the last 24-48 hours. He is far less somnolent than he was upon presentation. He is orient ed. He grossly appears to be nonfocal. He underwent angiography this morning, which reveals and con firms the presence of an arteriovenous malformation. His arterial supply is derived from the posteri or cerebral arteries. My plan today is to transition him from the unit to the floor. He can still develop obstructive hydr ocephalus, but there has been no evidence of that so far. I had a lengthy discussion with him and hi s family members about the plan moving forward, which will be to allow time for the blood to resolve with anticipated plan towards MRI scan and stereotactic radiosurgery for the AVM and a 4-6 week timef rame. Already discussed this case with Dr. Noah Rizvi.
[2017-02-09] MEDS: Acetaminophen 325 MG TAB PO PRN (13:08)
--- NOTE | 2017-02-09 13:13 | PRG ---
DATE OF SERVICE: 02/09/2017 The patient again this morning seems to be continually improving. The plan for this morning, he has been held n.p.o. since midnight and will be proceeding with an angiogram this morning with Dr. Cardoso. We will change his fluids and add some dextrose as planned, so that he does not get too low in term s of how his blood sugar goes. His examination looks great still. I talked to the dad briefly and a nswered some questions regarding his care going forward. Depending on what is found on the angiogram , we will determine plan of action in the coming weeks. If all goes well, and he continues to look a s well as he does and tolerates the procedure well, we can likely anticipate him going to the floor a nd later this afternoon perhaps at the soonest, not latest tomorrow morning. Otherwise, he continues to improve slowly.
--- NOTE | 2017-02-09 13:29 | PDOC.PN ---
- Subjective Encounter Start Date: 02/09/17 Encounter Start Time: 13:27 Subjective: no new complaints - Objective MAR Reviewed: Yes Vital Signs & Weight: Vital Signs (12 hours) Temp Pulse Pulse Pulse Pulse Resp BP 02/09/17 11:43 80 88 84 141/86 H 02/09/17 07:30 98.3 F 68 12 02/09/17 07:00 98.3 F 02/09/17 04:00 98.2 F BP BP Pulse Ox Pulse Ox Pulse Ox Pulse Ox 02/09/17 11:43 132/90 139/81 98 98 97 02/09/17 07:30 97 02/09/17 07:00 02/09/17 04:00 Weight Weight 182 lb 15.739 oz Most Recent Monitor Data Heart Rate from ECG 73 NIBP 142/88 NIBP BP-Mean 99 Respiration from ECG 9 SpO2 99 I&O: 02/08/17 02/09/17 02/10/17 06:59 06:59 06:59 Intake Total 3239 1578 Output Total 1999 8164 2200 Balance 9734 -279 -2208 Result Diagrams: 02/07/17 03:53 02/07/17 03:53 Additional Labs: Accuchecks 02/09/17 02/09/17 02/09/17 12:10 09:39 05:37 POC Glucose 90 102 121 H 02/08/17 02/08/17 20:29 16:34 POC Glucose 176 H 138 H Phys Exam - Physical Examination Constitutional: NAD HEENT: PERRLA, moist MMs, sclera anicteric Neck: supple, full ROM Respiratory: no rhonchi, clear to auscultation bilateral Cardiovascular: RRR, no significant murmur Gastrointestinal: soft, no distention Musculoskeletal: no edema, pulses present Neurological: non-focal, normal sensation, moves all 4 limbs Psychiatric: normal affect, A&O x 3 Dx/Plan (1) Diabetes mellitus type 1 Status: Chronic - Plan cont current plan of care * .
--- NOTE | 2017-02-09 13:49 | PRG ---
DATE OF SERVICE: 02/09/2017 SERVICE: Pulmonary Medicine. INTERVAL HISTORY: The patient did really well today. He underwent a catheterization and AVM was alayna ntified, but unfortunately, could not be fixed in a minimal interventional way. As such, the patient is going to cool off for a couple of weeks and a different procedure is going to be scheduled. At t his point, he has been told that he can be transitioned out of the ICU, but will likely need to remai n in the hospital for an additional 1-2 days. REVIEW OF SYSTEMS: He denies any current chest pain, shortness of breath, nausea or vomiting. Other taylor, there has been no interval changes to his condition. PHYSICAL EXAMINATION: VITAL SIGNS: Afebrile, pulse 73, blood pressure 142/88, respirations 14, saturation 99% on room air. GENERAL: The patient is awake, alert, in no apparent distress. LUNGS: Decent air entry. There is no prolonged expiratory phase or wheezing. HEART: Normal rate, regular. ABDOMEN: Soft, nontender, nondistended. Bowel sounds are positive. MUSCULOSKELETAL: No cyanosis or clubbing. No pitting in the bilateral lower extremities. NEUROLOGIC: Grossly nonfocal. ASSESSMENT: 1. Intraparenchymal hemorrhage. 2. Arteriovenous malformation. 3. Type 1 diabetes mellitus. PLAN: We will continue premeal and sliding scale insulin. The patient has a basal rate going throug h his pump. At this point, his blood sugars have remained excellent. We do have slightly tighter co ntrol than I would like and I have asked the patient to back off his basal rate ever so slightly. He can be transitioned out of the ICU to the stroke unit. At that point, however, no further [facility] nts for inpatient pulmonary critical care opinion, I will sign off. That being said, if he remains i n this location because of the bed crunch, I will continue to follow.
[2017-02-09] MEDS: Morphine 4 MG/ML VIAL SLOW IVP PRN (16:47)
[2017-02-10] MEDS: Amoxicillin/Potassium Clav 500 MG TAB PO SCH (08:31)
[2017-02-10] MEDS: Acetaminophen 325 MG TAB PO PRN (08:31)
[2017-02-10] MEDS: HumaLOG 300 UNITS/3 ML VIAL SC SCH ×3 (08:36→18:30)
[2017-02-10] MEDS: Sodium Chloride 0.9% 1,000 ML IV SCH (08:36)
--- NOTE | 2017-02-10 13:46 | PDOC.PN ---
- Subjective Encounter Start Date: 02/10/17 Encounter Start Time: 13:44 Subjective: feels Ok.no headache.no weakness,vision changes,nausea/vomiting - Objective MAR Reviewed: Yes Vital Signs & Weight: Vital Signs (12 hours) Temp Pulse Pulse Pulse Resp BP BP 02/10/17 11:10 98.9 F 77 16 02/10/17 10:00 88 82 126/80 127/75 02/10/17 08:30 82 16 02/10/17 08:00 98.9 F 78 16 02/10/17 07:10 98.9 F 78 16 02/10/17 03:52 98.4 F 78 16 BP Pulse Ox 02/10/17 11:10 131/84 99 02/10/17 10:00 02/10/17 08:30 130/71 02/10/17 08:00 97 02/10/17 07:10 146/94 H 97 02/10/17 03:52 129/73 98 Weight Weight 181 lb 14.4 oz Most Recent Monitor Data Heart Rate from ECG 76 NIBP 120/69 NIBP BP-Mean 86 Respiration from ECG 14 SpO2 99 I&O: 02/09/17 02/10/17 02/11/17 06:59 06:59 06:59 Intake Total 2728 1777 480 Output Total 2875 2200 Balance -147 -423 480 Result Diagrams: 02/07/17 03:53 02/07/17 03:53 Additional Labs: Accuchecks 02/10/17 02/09/17 02/09/17 05:35 20:55 17:06 POC Glucose 82 104 138 H Phys Exam - Physical Examination Constitutional: NAD HEENT: PERRLA, moist MMs, sclera anicteric, TM's clear, oral pharynx no lesions , 2+ tonsils Neck: no nodes, no JVD, supple, full ROM Respiratory: no wheezing, no rales, no rhonchi, clear to auscultation bilateral Cardiovascular: RRR, no significant murmur Gastrointestinal: soft, non-tender, no distention, positive bowel sounds Musculoskeletal: no edema, pulses present Neurological: non-focal, normal sensation, moves all 4 limbs Psychiatric: normal affect, A&O x 3 Skin: no rash Dx/Plan (1) ICH (intracerebral hemorrhage) Code(s): I61.9 - NONTRAUMATIC INTRACEREBRAL HEMORRHAGE, UNSPECIFIED Status: Acute Qualifiers: Intracerebral hemorrhage etiology: nontraumatic (2) Diabetes mellitus type 1 Status: Chronic - Plan plan discussed w/ family, DVT proph w/SCDs blood sugar controlled.cont ISS.cont monitoring at home -: advised BP monitoring at home. -: stable from IM stand point * . Review of Systems - Review of Systems Constitutional: negative: fever, chills, sweats, weakness, malaise, other ENT: negative: Ear Pain, Ear Discharge, Nose Pain, Nose Discharge, Nose Congestion, Mouth Pain, Mouth Swelling, Throat Pain, Throat Swelling, Other Respiratory: negative: Cough, Dry, Shortness of Breath, Hemoptysis, SOB with Excertion, Pleuritic Pain, Sputum, Wheezing Cardiovascular: negative: chest pain, palpitations, orthopnea, paroxysmal nocturnal dyspnea, edema, light headedness, other Gastrointestinal: negative: Nausea, Vomiting, Abdominal Pain, Diarrhea, Constipation, Melena, Hematochezia, Other Genitourinary: negative: Dysuria, Frequency, Incontinence, Hematuria, Retention , Other Musculoskeletal: negative: Neck Pain, Shoulder Pain, Arm Pain, Back Pain, Hand Pain, Leg Pain, Foot Pain, Other Neurological: negative: Weakness, Numbness, Incoordination, Change in Speech, Confusion, Seizures, Other - Medications/Allergies Allergies/Adverse Reactions: Allergies Allergy/AdvReac Type Severity Reaction Status Date / Time No Known Allergies Allergy Unverified 02/06/17 15:35 Medications: Current Medications Acetaminophen (Tylenol) 650 mg PO Q6H PRN PRN Reason: Headache/Fever or Pain Last Admin: 02/10/17 08:31 Dose: 650 mg Amoxicillin/Clavulanate Potassium (Augmentin) 500 mg PO Q12HR ADRIEN Stop: 02/17/17 21:01 Last Admin: 02/10/17 08:31 Dose: 500 mg Bisacodyl (Dulcolax) 10 mg CA DAILYPRN PRN PRN Reason: Constipation Dextrose/Water (Dextrose 50%) 25 gm IVP PRN PRN PRN Reason: HYPOGLYCEMIA PROTOCOL Glucagon (Glucagon) 1 mg IM PRN PRN PRN Reason: HYPOGLYCEMIA PROTOCOL Hydralazine HCl (Apresoline) 5 mg SLOW IVP Q15MIN PRN PRN Reason: SBP > 140, HR < 70 Last Admin: 02/06/17 20:41 Dose: 5 mg Sodium Chloride (Normal Saline 0.9%) 1,000 mls @ 80 mls/hr IV .[id number] ADRIEN Last Admin: 02/10/17 08:36 Dose: 1,000 mls Dextrose/Water (D5w) 1,000 mls @ 0 mls/hr IV .Q0M PRN; As Directed PRN Reason: Hypoglycemia Insulin Human Lispro (Humalog) 3 units SC AC ADRIEN Last Admin: 02/10/17 12:43 Dose: Not Given Insulin Human Lispro (Humalog) 0 units SC AC PRN PRN Reason: Correctional Scale Labetalol HCl (Normodyne) 10 mg SLOW IVP Q2H PRN PRN Reason: Sbp Greater Than 140 Last Admin: 02/06/17 22:19 Dose: 2 ml Morphine Sulfate (Morphine) 2 mg SLOW IVP Q2HR PRN PRN Reason: Breakthrough Pain Last Admin: 02/09/17 16:47 Dose: 2 mg Ccu Electrolyte (Replacement Protocol) 0 each FS PRN PRN PRN Reason: FOR ELECTROLYTE REPLACEMENT Ondansetron HCl (Zofran) 8 mg IVP Q6H PRN PRN Reason: Nausea/Vomiting Last Admin: 02/08/17 09:38 Dose: 8 mg Insulin Pump 0 each FS ASDIR [facility] Promethazine HCl (Phenergan) 12.5 mg SLOW IVP Q6H PRN PRN Reason: Nausea Last Admin: 02/06/17 22:51 Dose: 12.5 mg Promethazine HCl (Phenergan) 25 mg SLOW IVP Q6H PRN PRN Reason: Nausea Last Admin: 02/07/17 07:11 Dose: 25 mg Sodium Chloride (Flush - Normal Saline) 10 ml IVF PRN PRN PRN Reason: Saline Flush
--- NOTE | 2017-02-10 14:03 | PRG ---
DATE OF SERVICE: 02/10/2017 Mr. Zafar is doing extraordinarily well now on the stroke unit. He has been ambulating in the patrick lways with no assist. He complains of only a mild headache. He has a recently diagnosed posterior [place] AVM which will be treated in the outpatient setting by stereotactic radiosurgery. Our plan will be to have him meet with Dr. Rizvi in the next 1-2 weeks with plans for more advanced MRI imaging on ce the blood products have resolved.
[2017-02-10 16:04] VITALS: BP 135/86; TEMP 98.8
--- NOTE | 2017-02-10 16:50 | DIS ---
HISTORY: Mr. Zafar is a 21-year-old man who was admitted to [facility] on 02/07/2016 wit h subsequent discharge on 02/10/2017. ADMISSION DIAGNOSES: Acute intracerebral hemorrhage and cerebral arteriovenous malformation. 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 HOSPITAL COURSE: Mr. Zafar's hospitalization was complicated by admission to the ICU with consult ations of Critical Care Medicine and Hospital Medicine. He had CTA and formal catheter angiography d uring his hospital stay. He has had minimal problems controlling his headache and his neurologic exa mination is improved day to day. He ultimately returned to near normal functional status and was wal ariel in the hallways. He was discharged home in good condition with outpatient followup plan in the next 1-2 weeks with Neurosurgery and with Radiation Oncology with Dr. Rizvi per Dr. Cardoso's recommend ation. Pieter Joseph PA-C dictating for Dr. Cardoso.
--- NOTE | 2017-03-01 16:30 | CCL ---
DATE OR PROCEDURE: 02/10/17 SURGEON: Edis Cardoso M.D. COAT ROOM ATTENDANT: None. INDICATION: Intracerebral hemorrhage. DIAGNOSIS: AVM. PROCEDURES: Cerebral angiogram. TECHNIQUE: The patient was brought to the laborer hide house and placed on the table in supine position. Both groins were prepped and draped in usual sterile fashion. Following administration of 1% lidocaine. A 5-Vietnamese micropuncture set was used to gain access to the right common femoral artery. Using the Seldinger te chnique, the needle was removed and a 5-Vietnamese sheath was placed. A 5-Vietnamese diagnostic catheter was then placed over a [employer] guidewire into the aortic arch where the left vertebral artery was select ively catheterized. An AP and lateral angiogram was performed. Catheter was also placed within the left internal carotid artery were in AP and lateral angiogram was performed. Catheter was then remov ed. The sheath was removed. Hemostasis was maintained with manual compression. The procedure came to an end without complication. IMPRESSION: The patient underwent successful diagnostic cerebral angiography. Angiography reveals the presence o f a posterior fossa AVM which is fed predominantly by arterial supply of the posterior cerebral arter ies. This likely accounts for the patient's intracerebral hemorrhage. There is no intervention perf ormed.
== END 2017-02-10 19:05 | disposition home or self-care (01) | DRG 64 ==
LOC: ERS 14:41 → CCU 16:59 → 2SE 02-09 14:55
PROVIDERS: ADMIT Neurological Surgery; ATTEND Neurological Surgery
PROC: B3131ZZ Fluoroscopy of Right Common Carotid Artery using Low Osmolar Contrast (ICD-10-PCS; principal; 2017-02-10)
PROC: B31D1ZZ Fluoroscopy of Right Vertebral Artery using Low Osmolar Contrast (ICD-10-PCS; 2017-02-10)
DX: I61.9 Nontraumatic intracerebral hemorrhage, unspecified (principal); Q28.2 Arteriovenous malformation of cerebral vessels; E10.8 Type 1 diabetes mellitus with unspecified complications; Z79.4 Long term (current) use of insulin
CPT/HCPCS: 36224; 36226; 36415; 36416; 70450; 70496; 70553; 80048; 85025; 96374; A9579; G8978-GP-CJ; G8979-GP-CH; G8987-GO-CJ; G8988-GO-CH; G8996-GN-CH; G8997-GN-CH; J0131; J0360; J1644; J1815; J2270; J2405; J2550

== ENCOUNTER 2017-03-23 12:35 | Outpatient (CLI) | payer OTHER ==
--- NOTE | 2017-03-23 16:09 | MRI ---
EXAM: BRAIN MRI WITH AND WITHOUT CONTRAST 03/23/17 COMPARISON: 02/06/17 HISTORY: Arteriovenous malformation. Planning examination. TECHNIQUE: Brain MRI is performed with and without intravenous gadolinium administration. Multisequential, multi planar imaging is performed. FINDINGS: Redemonstration of a T2 hypointense lesion with flow voids predominantly involving the posterior righ t and midline ambient cistern. There is serpiginous enhancement of the postcontrast images. There is a focal area of malacia involving the posterior right lucille, corresponding to the previously noted 1.5 cm area of signal abnormality. Minimal associated gliosis on the T2 weighted images is suspected. Th ere may be associated minimal parenchymal enhancement, likely representing scar tissue. No additional areas of parenchymal enhancement appreciated. There is mucosal thickening involving the bilateral et hmoid air cells and maxillary sinuses. Previously noted air fluid level in the left maxillary sinus h as resolved. Stable mucous retention cyst in the right maxillary sinus. IMPRESSION: Interval resolution of abnormal signal intensity in the posterior aspect of the mid brain/lucille. There is associated volume loss enhancement suggesting scar tissue. Redemonstration of a tangle of vessels in the posterior aspect of the right ambient cistern, compatible for an arteriovenous malformation. POS: [facility]
--- NOTE | 2017-03-23 16:39 | CT ---
EXAM: CT ANGIOGRAM OF THE HEAD 03/23/17 HISTORY: Arteriovenous malformation. Planning study for radiotherapy. COMPARISON: 02/06/17. FINDINGS: No pathologic enhancement of the brain parenchyma. No evidence of parenchymal hemorrhage. Limited angi luation for subarachnoid hemorrhage due to the presence of intra-arterial contrast. A tangle of enhancing vessels is again demonstrated along the posterior right ambient cistern, compat ible with a previously defined and described arteriovenous malformation. No additional vascular lesio ns are appreciated at this time. The calvarium is intact. Adequate aeration of the mastoid air cells. Stable minimal mucosal thickenin g ethmoid air cells. IMPRESSION: Stable arteriovenous malformation. POS: [facility]
[2017-03-23] MEDS ORDERED: Iopamidol 370 76% 100 ML VIAL ONE (16:55)
[2017-03-23] MEDS ORDERED: Gadobenate Dimeglumine 529 MG/1 ML (20ML VIAL) ONE (17:01)
== END 2017-03-23 12:36 | disposition home or self-care (01) ==
LOC: MRI 12:35
PROVIDERS: ATTEND Radiology Radiation Oncology
DX: Q28.2 Arteriovenous malformation of cerebral vessels (principal)
CPT/HCPCS: 70496; 70553; A9579

== ENCOUNTER 2017-08-18 07:35 | Outpatient (CLI) | payer OTHER ==
--- NOTE | 2017-08-18 11:17 | MRI ---
BRAIN MRI WITHOUT CONTRAST: HISTORY: Brainstem AVM. Radiation planing. COMPARISON: 03/23/17. TECHNIQUE: A brain MRI is performed without intravenous Gadolinium administration. Multisequential, multiplanar imaging is performed. FINDINGS: There is persistent gradient echo hypointensity associated with an AVM along the posterior right aspe ct of the brainstem. On the axial T2 weighted images, small flow voids are noted. On the FLAIR sequ ence, there is minimal associated hyperintensity. There is stable associated malacic change. No sig nificant associated mass, mass effect, or midline shift. Overall, brain volume is age appropriate. Cortical pardo-white matter differentiation is preserved. Ventricles and sulci are patent and symmetr ic. Central arterial flow voids are maintained. Absent restricted diffusion. IMPRESSION: Redemonstration of a tangled vessel posterior to the right aspect of the brainstem. Stable parenchym al changes in the right brainstem are noted. POS: [facility]
--- NOTE | 2017-08-18 11:20 | MRI ---
MR ANGIOGRAM OF THE [place]: HISTORY: Headache. Brainstem AVM. COMPARISON: None. TECHNIQUE: MR angiogram of the [place] is performed in the axial plane. Three-dimensional reformatted images are submitted for interpretation. There is symmetric flow-related signal in the distal cervic al and intracranial internal carotid arteries. FINDINGS: There is symmetric flow-related signal in the A1 and M1 segments. Proximal A2 segments and proximal MCA branches are unremarkable. POSTERIOR CIRCULATION: Appropriate flow-related signal in the intracranial vertebral arteries. Both vertebral arteries supply a normal appearing basilar artery. There is appropriate flow related sign al. The right LIBRARY ASSISTANT has a origin. The left P1 segment is unremarkable. A subtle blush of flow related signal is noted along the posterior aspect of the right lucille, compatib le with a suggested AVM. IMPRESSION: 1. Unremarkable magnetic resonance angiography of the [place]. 2. Blush of flow related signal in the expected region of the arteriovenous malformation, posterior to the right aspect of the brainstem. POS: [facility]
== END 2017-08-18 07:36 | disposition home or self-care (01) ==
LOC: TBSIIMAG 07:35
PROVIDERS: ATTEND Neurological Surgery
DX: Q28.2 Arteriovenous malformation of cerebral vessels (principal)
CPT/HCPCS: 70544; 70551

== ENCOUNTER 2018-04-07 06:02 | Day surgery (SDC) | payer OTHER ==
[2018-04-06 11:29] VITALS: BMI 25.7
[2018-04-07] MEDS ORDERED: Heparin 10,000 UNITS/1 ML VIAL ONE (06:52)
[2018-04-07 06:56] LABS: Anion Gap 16 mmol/L (10-20); BUN (Urea Nitrogen) 11 mg/dL (8.9-20.6); Calc. Creatinine Clearance 162 mL/min (70-130); Calcium 9.9 mg/dL (7.8-10.44); Carbon Dioxide 22 mmol/L (22-29); Chloride 104 mmol/L (98-107); Estimated GFR-MDRD Greater than 90; Glucose 225 mg/dL (70-105); Potassium 3.6 mmol/L (3.5-5.1); Sodium 138 mmol/L (136-145)
[2018-04-07] MEDS ORDERED: Iopamidol 370 76% 50 ML VIAL FS ONE (10:11)
--- NOTE | 2018-04-08 10:29 | CCL ---
RADIOLOGY PROCEDURE NOTE: Date: 04/07/18 SURGEON: Edis Cardoso M.D. MULTIMEDIA TECHNICIAN: None. INDICATION: History of AV malformation treated with stereotactic radiosurgery. PROCEDURE: Cerebral angiography. ANESTHESIA: Local. TECHNIQUE: The patient was brought into the angiogram suite and placed on the table in the supine position. Both groins were prepped and draped in the usual sterile fashion. 1% lidocaine was used to inject the rig ht groin. A 5 [place] Islander Micropuncture set was then used to gain access to the right common femoral arter y. Using the Seldinger technique, a 5 [place] sheath was placed. A 5 [place] diagnostic catheter was th en passed over a [employer] guidewire and was then advanced into the aortic arch where the left vertebra l artery was selectively catheterized. An AP and lateral angiogram was performed. All catheters were then removed. Hemostasis was maintained with manual compression. The procedure came to an end without complication. FINDINGS: The patient underwent successful angiography of the left vertebral artery. There appeared to be no ev idence for residual AV malformation present approximately 1 year ago and subsequently treated with st ereotactic radiosurgery.
== END 2018-04-07 14:29 | disposition home or self-care (01) ==
LOC: CCL 06:02
PROVIDERS: ATTEND Neurological Surgery
PROC: B31F1ZZ Fluoroscopy of Left Vertebral Artery using Low Osmolar Contrast (ICD-10-PCS; principal; 2018-04-07)
DX: Q28.2 Arteriovenous malformation of cerebral vessels (principal); Z79.4 Long term (current) use of insulin
CPT/HCPCS: 36226; 36416; 80048; J1644